=== PATIENT | male | born 1960 | race Caucasian/White ===

== ENCOUNTER 2023-12-21 18:22 | Emergency (ER) | payer BC, SELFPAY ==
[2023-12-21 18:40] VITALS: BP 156/98; PULSE 62; RESP 18; TEMP 36.8; O2SAT 96; BMI 38.9
--- NOTE | 2023-12-21 19:16 | EXP.UTC ---
Discharge Plan Disposition Patient Disposition: Home, Self-Care Condition: Good Prescriptions Prescriptions: New valacyclovir 1 gram tablet 1,000 mg PO Q8H 7 Days Qty: 21 0RF Referrals Follow up/Referrals: Jaylan Moncada MD [Primary Care Provider] - See instructions Activity Restrictions/Add. Instructions Additional Instructions/Restrictions: Take medication as prescribed Follow up with your Family Doctor if no improvement or any worsening of symptoms Do not scratch Straight to ER if any life threatening symptoms Oatmeal baths may help to sooth the rash Clinical Impressions Clinical Impression: Shingles Instructions Patient Instructions: DI for Shingles, Valacyclovir Discharge ED Provider: Beth Xiao [facility] General Stated complaint: rash on chest Mode of Arrival: Ambulatory Source of Information: Patient Limitations: No Limitations Time Seen by Provider: 12/21/23 19:16 Description of Symptoms (Recalled from Triage Doc. by RN): PATIENT C/O RASH ON CHEST THAT HE NOTICED 2 DAYS AGO HEENT Symptoms (Recalled from RN notes): No Resp Symptoms (Recalled from RN notes): No Skin Symptoms (Recalled from RN notes): Yes MS Symptoms (Recalled from RN notes): No Functional Status (Recalled from RN notes): WNL History of Present Illness Provider Complaint: Patient states that he noticed a red raised rash on his chest a couple days ago that is a little sensitive States that he thinks it may be shingles Related Data Previous Rx's Medication Instructions Recorded valacyclovir 1 gram tablet 1,000 mg PO Q8H 7 days #21 tabs 12/21/23 Allergies Allergy/AdvReac Type Severity Reaction Status Date / Time No Known Allergies Allergy Verified 12/21/23 18:52 Worker's Comp Is this a Worker's Comp case?: No [facility] Disclaimer: The information contained in this section may have been updated after the patient was seen, as this information can be updated by other users. Medical History (Updated 12/21/23 @ 19:21 by Beth Xiao APRN) No significant past medical history Social History Smoking Status: Unknown if ever smoked alcohol intake: never current occupational status: employed Travel in the last 8 weeks: None ROS Obtained: Yes All systems reviewed & no additional complaints except as documented and Yes Systems reviewed as appropriate & no additional complaints except as documented Constitutional Constitutional: Reports system reviewed and no additional complaints, except as documented and Reports as per HPI ENT Ears, Nose, Mouth, and Throat: Reports system reviewed and no additional complaints, except as documented and Reports as per HPI Cardiovascular Cardiovascular: Reports system reviewed and no additional complaints, except as documented and Reports as per HPI Respiratory Respiratory: Reports system reviewed and no additional complaints, except as documented and Reports as per HPI Gastrointestinal Gastrointestingal: Reports system reviewed and no additional complaints, except as documented and as per HPI Musculoskeletal Musculoskeletal: Reports system reviewed and no additional complaints, except as documented and Reports as per HPI Integumentary/Breasts Skin/Breast: Reports system reviewed and no additional complaints, except as documented, Reports as per HPI and Reports rash Physical Exam General General appearance: alert and in no apparent distress ENT ENT exam: Present mucous membranes moist Respiratory Respiratory exam: Present normal lung sounds bilaterally; Absent respiratory distress or wheezes Cardiovascular Cardiovascular exam: Present regular rate, normal rhythm and normal heart sounds Neurological Exam Neurological exam: Present alert, oriented X3 and normal gait Skin Skin exam: Present rash Expanded Skin Exam Body image: 1. red raised blister like rash appears like shingles Medical Decision Making Danny Inquiry Pt receiving controlled substance: No Danny was queried for this patient: No Vital Signs: 12/21/23 18:40 Temperature 98.2 F Temperature Source Oral Pulse Rate [Left Brachial] 62 Respiratory Rate 18 Blood Pressure [Left Arm] 156/98 H Blood Pressure Mean [Left Arm] 117 Blood Pressure Source [Left Arm] Automatic Cuff Blood Pressure Position [Left Arm] Sitting 02 Sat by Pulse Oximetry 96 Oxygen Delivery Method Room Air
[2023-12-21 19:18] VITALS: BP 156/98; PULSE 62; RESP 18; TEMP 36.8; O2SAT 96
== END 2023-12-21 19:26 | disposition home or self-care (01) ==
PROVIDERS: Emergency Provider Nurse Practitioner; PCP Family Medicine
DX: B02.9 Zoster without complications (principal)
CPT/HCPCS: 99204; 99212; G0463